=== PATIENT | male | born 1950 | race Caucasian/White ===

== ENCOUNTER 2017-01-06 21:27 | Emergency (ER) | payer MEDICARE, MEDICAID ==
[~2017-01-06] VITALS: Ht 165.1 cm; Wt 71.1 kg
[2017-01-07 01:48] VITALS: BP 130/77
== END 2017-01-07 00:39 | disposition home or self-care (01) ==
LOC: ED 21:30
DX: Z03.6 Encounter for observation for suspected toxic effect from ingested substance ruled out (principal)
CPT/HCPCS: 99282

== ENCOUNTER → 2017-01-11 | Outpatient (CLI) | payer MEDICARE, MEDICAID ==
[2017-01-11 09:03] LABS: BASOPHILS % (AUTO) 0 % (0-2); EOSINOPHILS # (AUTO) 0.2 10^3uL; EOSINOPHILS % (AUTO) 2 % (0-4); LYMPHOCYTES # (AUTO) 1.5 X10^3; MEAN CORPUSCULAR HEMOGLOBIN 29.8 PG (26.0-34.0); MEAN CORPUSCULAR HGB CONC 33.8 g/dL (31.0-37.0); MEAN CORPUSCULAR VOLUME 88 FL (80-100); MEAN PLATELET VOLUME 10.8 FL (6.0-9.5); MONOCYTES # (AUTO) 0.6 X10^3; MONOCYTES % (AUTO) 8 % (3-11); NEUTROPHILS # (AUTO) 4.9 X10^3; NEUTROPHILS % (AUTO) 68 % (51-67); PLATELET COUNT 168 10^3uL (150-450); WHITE BLOOD COUNT 7.15 10^3uL (4.0-11.0)
[2017-01-11 09:20] LABS: ALBUMIN 4.4 g/dL (3.4-5.0); MAGNESIUM* 2.1 mg/dL (1.6-2.3); TOTAL PROTEIN 7.6 g/dL (6.4-8.5)
[2017-01-14 13:58] LABS: LAMOTRIGINE 9.1 mcg/mL
== END ==
LOC: LAB 08:39
PROVIDERS: ATTEND Family Medicine
DX: R79.89 Other specified abnormal findings of blood chemistry (principal); E78.5 Hyperlipidemia, unspecified; D50.8 Other iron deficiency anemias; E13.65 Other specified diabetes mellitus with hyperglycemia; E83.42 Hypomagnesemia; Z12.5 Encounter for screening for malignant neoplasm of prostate; E03.4 Atrophy of thyroid (acquired); M81.0 Age-related osteoporosis without current pathological fracture; G40.909 Epilepsy, unspecified, not intractable, without status epilepticus
CPT/HCPCS: 36415; 80053; 80061; 80175; 82360; 83036; 83735; 84146; 84436; 84443; 85025; G0103; 82306; 84153

== ENCOUNTER → 2017-01-21 | Outpatient (REF) | payer MEDICARE, MEDICAID ==
[~2017-01-21] MED LIST: ACET325T38 PO; ATOR10TA PO; BISM262O27 PO; CHLO118M2 MM; CHOL100092 PO; CLON0.5T3 PO; CLON1TAB PO; COLE625T PO; DIPH12.510 PO; DOCU100C8 PO; ESCI20TA PO; GFN600TCR PO; GUAI120L29 PO; HCTZ12.5T PO; LAMO200T14 PO; LOPE2CAP PO; METO25TA2 PO; MULT-954 PO; OLN5T PO; OMEP10SU PO; RANI150T15 PO; SODI51CR7 DT; SUCR1TAB29 PO; TAMS-8 PO; TOPI50TA37 PO; ZINC56CR2 TP; [UNRECOGNIZED DRUG - OTHER] PO
== END ==
LOC: LAB 15:45
PROVIDERS: ATTEND Family Medicine
DX: Z53.9 Procedure and treatment not carried out, unspecified reason (principal)

== ENCOUNTER → 2017-01-22 | Outpatient (REF) | payer MEDICARE, MEDICAID ==
[2017-01-22 13:43] LABS: BILIRUBIN,URINE Negative (Negative); CLARITY,URINE Clear; COLOR,URINE Yellow; GLUCOSE, URINE (UA) Negative (Negative); LEUKOCYTE ESTERASE ,URINE Negative (Negative); PH,URINE 5.5 (5.0 - 8.0); UROBILINOGEN,URINE 0.2 mg/dL (0.2-1.0)
== END ==
LOC: LAB 13:34
PROVIDERS: ATTEND Family Medicine
DX: N39.0 Urinary tract infection, site not specified (principal)
CPT/HCPCS: 81003